=== PATIENT | female | born 1940 | race Caucasian/White ===

== ENCOUNTER 2016-11-07 12:16 | Emergency (ER) | payer MEDICARE, OTHER ==
[2016-11-07] MEDS ORDERED: Ondansetron 4 MG/2 ML SDV IVPUSH ONE (12:35)
[2016-11-07] MEDS ORDERED: Ketorolac 30 MG/ML SDV IVPUSH ONE (12:35)
[2016-11-07] MEDS ORDERED: HYDROmorphone 1 MG/ML Syringe IVPUSH ONE (12:35)
--- NOTE | 2016-11-07 12:42 | EDM.PDOC ---
ED HPI GI/ABDOMINAL - General Time Seen by Provider: 11/07/16 12:27 Source of Information: Reports: Patient History Limitations: Reports: No limitations - History of Present Illness INITIAL COMMENTS - FREE TEXT/NARRATIVE: Patient presents with LUQ pain that started acutely about 3.5 hours ago. She had UA in clinic this morning and was told there was blood in it. We can't get that UA result currently. Pt tells us she had a kidney stone several years ago and this feels just like that. She has nausea but no vomiting. Pain is quite severe at 6/10. No other kidney failure or disease. - Related Data Allergies/ADRs: Allergies Allergy/AdvReac Type Severity Reaction Status Date / Time No Known Allergies Allergy Verified 11/07/16 13:07 Home Meds: Home Meds Acetaminophen [Acetaminophen Extra Strength] 1,000 mg PO Q6HR PRN 11/07/16 [ History] Amitriptyline HCl [Amitriptyline HCl] 100 mg PO BEDTIME 11/07/16 [History] Anastrozole [Anastrozole] 1 mg PO BEDTIME 11/07/16 [History] Aspirin 81 mg PO BEDTIME 11/07/16 [History] Calcium Carbonate/Vitamin D3 [Caltrate 600 + D Soft Chew Tab] 1 each PO BEDTIME 11/07/16 [History] Diphenhyd/Lidocaine/Nystatin [Magic Mouthwash] 10 ml PO QID 11/07/16 [History] Furosemide [Furosemide] 20 mg PO DAILY PRN 11/07/16 [History] Isosorbide Mononitrate [Isosorbide Mononitrate ER] 30 mg PO BEDTIME 11/07/16 [ History] Modafinil [Provigil] 200 mg PO DAILY 11/07/16 [History] Omeprazole 40 mg PO DAILY PRN 11/07/16 [History] atorvaSTATin [Lipitor] 20 mg PO BEDTIME 11/07/16 [History] ED ROS GENERAL - Review of Systems Review Of Systems: See Below Constitutional: Denies: fever, chills, weakness HEENT: Denies: Throat pain, Vision change Respiratory: Denies: Shortness of Breath, Cough Cardiovascular: Denies: Chest pain, Syncope GI/Abdominal: Reports: Abdominal pain, Nausea. Denies: Vomiting : Denies: dysuria, flank pain Musculoskeletal: Reports: no symptoms Skin: Denies: cyanosis, jaundice, mottled, pallor, diaphoresis Neurological: Denies: Confusion, Dizziness, Headache, Seizure, Syncope, Weakness , Change in Speech Psychiatric: Denies: Agitation, Anxiety, Confusion ED EXAM, GI/ABD - Physical Exam Exam: See Below Exam Limited By: No limitations General Appearance: alert, WD/WN, no apparent distress Eyes: bilateral: normal appearance, EOMI Ears: normal external exam, hearing grossly normal Nose: normal inspection, no blood Throat/Mouth: Normal lips, Normal voice, No airway compromise Head: atraumatic, normocephalic Neck: supple, non-tender, full range of motion Respiratory/Chest: no respiratory distress, lungs clear, normal breath sounds, no accessory muscle use Cardiovascular: normal peripheral pulses, regular rate, rhythm, no murmur GI/Abdominal: normal bowel sounds, soft, non tender, no organomegaly, no distention, other (the pain is constant but not reproducible with palpation.) Back Exam: No: CVA tenderness (L), CVA tenderness (R) Extremities: normal inspection, normal range of motion, non-tender Neurological: alert, oriented, normal cognition, no motor/sensory deficits Psychiatric: normal affect, normal mood Skin Exam: Warm, Dry, Intact, Normal color, No rash Course - Vital Signs Last Recorded V/S: Last Vital Signs Temp 97.8 F 11/07/16 12:56 Pulse 83 11/07/16 13:30 Resp 16 11/07/16 13:30 BP 173/82 H 11/07/16 13:30 Pulse Ox 92 L 11/07/16 13:34 - Orders/Labs/Meds Orders: Active Orders 24 hr Category Date Time Status Abdomen Pelvis wo Cont [CT] Stat Exams 11/07/16 12:36 Ordered Labs: Laboratory Tests 11/07/16 11/07/16 11/07/16 Range/Units 12:45 12:45 13:53 WBC 12.4 H (5.0-10.0) 10^3/uL RBC 4.44 (3.80-5.50) 10^6/uL Hgb 14.2 (12.0-16.0) g/dL Hct 41.6 (37.0-47.0) % MCV 93.6 H (82.0-92.0) fL MCH 32.0 H (27.0-31.0) pg MCHC 34.2 (32.0-36.0) g/dL RDW 13.1 (11.5-14.5) % Plt Count 225 (150-300) 10^3/uL MPV 7.0 L (7.4-10.4) fL Neut % (Auto) 85.0 H (50.0-70.0) % Lymph % (Auto) 12.3 L (20.0-40.0) % Robertson % (Auto) 2.4 (2.0-8.0) % Eos % (Auto) 0.2 L (1.0-3.0) % Baso % (Auto) 0.1 (0.0-1.0) % Neut # (Auto) 10.6 H (2.5-7.0) 10^3/uL Lymph # (Auto) 1.5 (1.0-4.0) 10^3/uL Robertson # (Auto) 0.3 (0.1-0.8) 10^3/uL Eos # (Auto) 0.0 L (0.1-0.3) 10^3/uL Baso # (Auto) 0.0 (0.0-0.1) 10^3/uL Sodium 138 (136-145) mmol/L Potassium 3.8 (3.3-5.3) mmol/L Chloride 101 (98-115) mmol/L Carbon Dioxide 28.4 (21.0-32.0) mmol/L BUN 11 (6-25) mg/dL Creatinine 0.97 (0.51-1.17) mg/dL Est Cr Clr Drug Dosing 47.63 mL/min Estimated GFR (MDRD) 56 mL/min Glucose 139 H (70-110) mg/dL Calcium 8.7 (8.7-10.3) mg/dL Specimen Type Urincath Urine Color Yellow (YELLOW) Urine Appearance Slightly cloudy H (CLEAR) Urine pH 7.0 (5.0-9.0) Ur Specific Seney 1.020 (1.005-1.030) Urine Protein Negative (NEGATIVE) mg/dL Urine Glucose (UA) Negative (NEGATIVE) mg/dL Urine Ketones Negative (NEGATIVE) mg/dL Urine Occult Blood Moderate H (NEGATIVE) Urine Nitrite Negative (NEGATIVE) Urine Bilirubin Negative (NEGATIVE) Urine Urobilinogen 0.2 (0.2-1.0) E.U./dL Ur Leukocyte Esterase Negative (NEGATIVE) Urine RBC 20-30 H /HPF Urine WBC Not seen /HPF Ur Epithelial Cells Not seen /LPF Urine Bacteria Not seen (NONE TO FEW) /HPF Meds: Medications Discontinued Medications Generic Name Dose Route Start Last Admin Trade Name Brigidoq PRN Reason Stop Dose Admin Hydromorphone HCl 1 mg 11/07/16 12:35 11/07/16 12:45 Dilaudid IVPUSH 11/07/16 12:36 1 mg ONETIME ONE Administration Ketorolac Tromethamine 30 mg 11/07/16 12:35 11/07/16 12:48 Toradol IVPUSH 11/07/16 12:36 30 mg ONETIME ONE Administration Ondansetron HCl 4 mg 11/07/16 12:35 11/07/16 12:46 Zofran IVPUSH 11/07/16 12:36 4 mg ONETIME ONE Administration - Re-Assessments/Exams Free Text/Narrative Re-Assessment/Exam: 11/07/16 13:13 Following Dilaudid 1 mg, Zofran 4 mg and Toradol 30, pain is at 0/10. CT is done and waiting on report now. 11/07/16 14:24 CT shows 4.5 mm stone in proximal left ureter with additional nephrolithiasis noted bilaterally. Also a 4.8 adnexal cystic lesion (left) and cholelithiasis with no evidence of cholecystitis or bile duct dilatation. Discussed these findings with patient. Also discussed with Dr. Carter (urologist in [facility] ) who advised flomax and hydrocodone. He feels this will likely pass in next few to several days. Discussed treatment plan with patient. 11/07/16 14:31 Discussed with pharmacist (Lavern) the use of ketorolac po for home use up to 5 days. She said it should be okay for this patient. Departure - Departure Time of Disposition: 14:36 Disposition: Home, Self-Care 01 Condition: good Clinical Impression: Left ureteral stone Instructions: Kidney Stones, [id number] Additional Instructions: 1. Take the medications as instructed and drink 8 cups of water daily to help kidney function and passage of the stone. 2. If fever or worsening develops, return to ER. 3. Use the urine strainer to catch the stone so you can take it to your PCP to be analyzed. 4. Follow up with your PCP to discuss your gallstones and ovarian cyst with in next 1-2 weeks. - My Orders Last 24 Hours: My Active Orders 11/07/16 12:36 Abdomen Pelvis wo Cont [CT] Stat - Assessment/Plan Last 24 Hours: My Active Orders 11/07/16 12:36 Abdomen Pelvis wo Cont [CT] Stat
[2016-11-07 13:31] VITALS: BP 173/82
== END 2016-11-07 16:50 | disposition home or self-care (01) ==
LOC: KA.ED 12:16 → MERGE 12:16 → KA.ED 16:50
DX: N20.1 Calculus of ureter (principal); Z79.82 Long term (current) use of aspirin; Z79.899 Other long term (current) drug therapy
CPT/HCPCS: 74176; 80048; 81001; 85025; 96374; 96375; 99284; J1170; J1885; J2405